=== PATIENT | female | born 1995 | race Caucasian/White ===

== ENCOUNTER → 2017-08-19 | Outpatient (CLI) | payer BC ==
--- NOTE | 2017-08-19 07:26 | DIAGNOSTIC IMAGING REPORT ---
ULTRASOUND OF THE LEFT WRIST CLINICAL HISTORY: M67.439 Ganglion cyst of wristlets [id number] COMPARISON STUDY: No previous studies for comparison. FINDINGS: Within the dorsum of the left wrist on the radial side, corresponding to the patient's palpable lump there is a complex septated cystic lesion measuring 19 x 11 x 6 mm. IMPRESSION: The patient's palpable abnormality corresponds to a nonspecific septated cystic lesion measuring 19 x 11 x 6 mm. Electronically signed by: Zelalem Munguia M.D. 08/19/2017 7:25 AM Dictated Date/Time: 08/19/2017 7:23 AM
== END | disposition home or self-care (01) ==
LOC: C.ULTR 06:43
PROVIDERS: ATTEND Physician Assistant
DX: M67.432 Ganglion, left wrist (principal)